=== PATIENT | female | born 1965 | race Caucasian/White ===

== ENCOUNTER 2017-02-20 12:00 | Inpatient (IN) | payer OTHER ==
[~2017-02-20] VITALS: Ht 180.3 cm; Wt 64.0 kg
--- NOTE | ~2017-02-20 | DS ---
Unit #: [id number] #: [id number] Patient: BROOKLYN BLAIR [id number] [facility] [address] [place] [address] [id number] I MR#: [id number] NAME: BROOKLYN BLAIR ROOM: [facility] Age: 51 Sex: F Admission Date: 02/20/2017 : 1965 Discharge Date: 02/24/2017 Attending Physician: Pollo Rodriguez M.D. Primary Care Physician: Generic Doctor Not In System DISCHARGE SUMMARY REASON FOR ADMISSION Depression. DIAGNOSTIC STUDIES LABORATORY RESULTS: Remarkable for urine drug screen positive for marijuana and opioid. HOSPITAL COURSE The patient was admitted to inpatient unit on 02/20/2017 and discharged on 02/24/2017. The patient was treated on the inpatient unit with chemical dependency group, expressive therapy, medication management, psychotherapy, psychoeducation. The patient participated in program, showed improvement. The patient was subsequently discharged with a plan to follow up in outpatient program. DISCHARGE MEDICATIONS Paxil 20 mg daily for mood symptom, Desyrel 150 mg at bedtime for sleep, Vistaril 50 mg t.i.d. for anxiety, and Neurontin 300 mg t.i.d. for anxiety. DISCHARGE DIAGNOSES Psychiatric: Major depressive disorder, recurrent, severe, F33.2; anxiety disorder, not otherwise specified, F40.01; cannabis abuse, moderate, F12.20; opioid use disorder, moderate, F11.20. Secondary diagnosis: Deferred. Medical diagnosis: Hypertension. Stressors: Psychosocial stressor. DISCHARGE INSTRUCTIONS The patient to follow up in outpatient clinic as per rn social services. CONDITION ON DISCHARGE The patient was pleasant and cooperative. Denied any psychotic symptom or any suicidal ideation. PROGNOSIS Guarded. DIET AND ACTIVITY As tolerated. Unit #: [id number] #: [id number] Patient: BROOKLYN BLAIR Dictated by... Pollo Rodriguez M.D. SZC/birdiel TD: 02/24/2017 18:44 JOB #: [id number] DISCHARGE SUMMARY Page 1 of 1 X Pollo Rodriguez MD X DISCHARGE SUMMARY
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
--- NOTE | ~2017-02-20 | HP ---
Unit #: [id number] #: [id number] Patient: MARGIE BLAIR [id number] [place] [address] [id number] MR#: [id number] NAME: MARGIE BLAIR ROOM: P258 Age: 51 Sex: F Admission Date: 02/20/2017 : 1965 Attending Physician: Pollo Rodriguez M.D. Admitting Physician: Pollo Rodriguez M.D. Primary Care Physician: Generic Doctor Not In System HISTORY AND PHYSICAL HISTORY OF PRESENT ILLNESS Margie is a 51-year-old female admitted on 02/20/[address] [place] [address] for depression and anxiety with suicidal ideation. PAST MEDICAL HISTORY 1. Hypertension. 2. Peripheral nerve pain. PAST SURGICAL HISTORY 1. Hysterectomy. 2. 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 ALLERGIES No known drug allergies. SOCIAL HISTORY Smokes less than half pack of cigarettes daily. No alcohol or illegal drug use. She is currently and living with her . FAMILY HISTORY Noncontributory. REVIEW OF SYSTEMS CONSTITUTIONAL: No fever or chills. HEENT: Denies any sore throat, ear pain or runny nose. CARDIOVASCULAR: Denies chest pain, irregular heart rhythm or palpitations. CHEST: Denies shortness of breath or cough. No hemoptysis. GASTROINTESTINAL: Denies nausea, vomiting, diarrhea or chronic constipation. ENDOCRINE: Denies history of increased thirst or urination. No recent significant weight loss or gain. GENITOURINARY: Denies dysuria, frequency, or hematuria. SKIN: Denies any rashes. HEMATOLOGIC: Denies history of increased bleeding or bruising. MUSCULOSKELETAL: Denies any hot, swollen joints. No generalized muscle pain. NEUROLOGIC: Denies problems with vision or speech. No frequent, severe headaches. No numbness, tingling or weakness in any extremities. Denies loss of bladder or bowel control. CURRENT MEDICATIONS 1. Paxil. 2. Coreg. Unit #: [id number] #: [id number] Patient: MARGIE BLAIR 3. Klonopin. 4. Ambien. 5. BuSpar. 6. Trileptal. PHYSICAL EXAMINATION GENERAL: Alert, oriented, in no acute distress. VITAL SIGNS: Blood pressure 131/92, heart rate 85, temperature 98.1. HEIGHT: 5 feet 11. WEIGHT: 141 pounds. SKIN: Warm and dry without rash or lesion. HEENT: Normocephalic. TMs not viewed. Oral and nasal passages clear. Conjunctivae clear. PERRLA. EOMs intact. NECK: Supple without lymphadenopathy or thyromegaly. HEART: Regular rate and rhythm without murmur. LUNGS: Clear. ABDOMEN: Soft, nontender, without masses or hepatosplenomegaly. : Not done. EXTREMITIES: No evidence of cyanosis, clubbing or edema. Moves all without focal deficit. NEUROLOGICAL: Grossly within normal limits. Cranial Nerves: II: Visual felix are intact. III, IV AND : Extraocular movements are intact. Pupils are equal, round and reactive to light. V: Facial sensation is grossly normal. VII: Facial movements and expression are normal. VIII: Auditory acuity grossly intact. IX, X: Uvula is midline. Phonation is normal. XI: Patient shrugs shoulders and turns head normally. XII: Tongue protrudes in the midline. Sensory and Motor Function: Sensory and motor sensation is grossly normal. Motor: moves all extremities well. Coordination: Gait is normal. Deep Tendon Reflexes: Intact. IMPRESSION 1. Psychiatric admission. 2. Hypertension. 3. Peripheral nerve pain. RECOMMENDATIONS PSYCHIATRIC: Per psychiatrist. MEDICAL: No contraindication to participate in facility's activities. MEDICAL PROGNOSIS Good. MEDICAL CONDITION Stable. Dictated by... Shady Salinas/landon TD: 02/20/2017 22:00 Unit #: [id number] #: [id number] Patient: MARGIE BLAIR JOB #: [id number] HISTORY AND PHYSICAL Page 1 of 1 X SARAY ZIMMERMAN APRN HISTORY AND PHYSICAL
--- NOTE | ~2017-02-20 | PN ---
Unit #: [id number] #: [id number] Patient: MARGIE FAJARDO [id number] [facility] [address] [place] [address] [id number] I MR#: [id number] NAME: MARGIE FAJARDO ROOM: P258 Age: 51 Sex: F Admission Date: 02/20/2017 : 1965 Attending Physician: Pollo Rodriguez M.D. Admitting Physician: Pollo Rodriguez M.D. Primary Care Physician: Generic Doctor Not In System [facility] PROGRESS NOTES DATE 02/21/2017 DISCUSSION Margie Fajardo is a 51-year-old female seen on 02/21/2017. Patient interviewed. Chart reviewed. Obtained information from nursing staff. Patient continues to report having trouble sleeping, anxiety, restless, anxious, nervous, suicidal ideation. Complete review of system unremarkable. MENTAL STATUS EXAMINATION General appearance, patient dressed casually. Attention span, concentration poor. Oriented in place and person. Mood and affect labile. Speech rapid. Thought process circumstantial. Patient denied any thoughts of harming self or others but somewhat guarded. Recent and remote memory poor. Insight and judgement poor. DIAGNOSES 1. Major depressive disorder, recurrent, severe. 2. Anxiety disorder NOS. ASSESSMENT/PLAN Advised to increase trazodone to 150 mg at bedtime, Klonopin 1 mg t.i.d., Paxil 20 mg daily. If needed, consider further adjustment of medication. Continue with the inpatient programming at this time. Dictated by... Ramona Downs/landon TD: 02/22/2017 22:29 JOB #: [id number] Unit #: [id number] #: [id number] Patient: MARGIE FAJARDO PROGRESS NOTES Page 1 of 1 X Pollo Rodriguez MD PROGRESS NOTE
--- NOTE | ~2017-02-20 | PN ---
Unit #: [id number] #: [id number] Patient: BROOKLYN BLAIR [id number] [facility] [address] [place] [address] [id number] MR#: [id number] NAME: BROOKLYN BLAIR ROOM: P258 Age: 51 Sex: F Admission Date: 02/20/2017 : 1965 Attending Physician: Pollo Rodriguez M.D. Admitting Physician: Pollo Rodriguez M.D. Primary Care Physician: Generic Doctor Not In System [facility] PROGRESS NOTES DATE 02/23/2017 DISCUSSION Ms. Hanson is a 51-year-old female, seen on 02/23/2017. The patient interviewed, chart reviewed, and obtained information from the nursing staff. The patient was reporting having problem with the anxiety, became mad, angry, upset, and explained that we will not start Klonopin. The patient tested positive for marijuana and opiates. REVIEW OF SYSTEMS Complete review of systems unremarkable. MENTAL STATUS EXAMINATION General appearance: Patient dressed casually. Attention span and concentration, fair. Oriented in place and person. Mood and affect, labile. Speech, rapid. Thought process, circumstantial. The patient denied any thoughts of harming self or others but guarded. Recent and remote memory, poor. Insight and judgment, poor. DIAGNOSES 1. Mood disorder, NOS. 2. Cannabis abuse, moderate. 3. Opiate use disorder, moderate. ASSESSMENT/PLAN Advised to continue with the current combination of medication, with the trazodone, Neurontin, Vistaril, if needed consider further adjustment of medication. The patient is also on Paxil and opiate protocol. Dictated by... Ramona Downs/edward TD: 02/25/2017 06:49 JOB #: [id number] Unit #: [id number] #: [id number] Patient: BROOKLYN BLAIR [facility] PROGRESS NOTES Page 1 of 1 X Pollo Rodriguez MD PROGRESS NOTE
--- NOTE | ~2017-02-20 | PN ---
Unit #: [id number] #: [id number] Patient: MARGIE FAJARDO [id number] [facility] [address] [place] [address] [id number] MR#: [id number] NAME: MARGIE FAJARDO ROOM: P258 Age: 51 Sex: F Admission Date: 02/20/2017 : 1965 Attending Physician: Pollo Rodriguez M.D. Admitting Physician: Pollo Rodriguez M.D. Primary Care Physician: Generic Doctor Not In System [facility] PROGRESS NOTES DATE 02/22/2017 DISCUSSION Ms. Margie Fajardo is a 51-year-old female, seen on 02/22/2017. The patient interviewed, chart reviewed, and obtained information from the nursing staff. The patient was explained why her Klonopin was discontinued and medication change. The patient seems to be better, compliant and cooperative still somewhat sad and dysphoric but decrease in anxiety, tolerating medication fairly well, isolative, guarded, flat affect. REVIEW OF SYSTEMS Complete review of systems unremarkable. MENTAL STATUS EXAMINATION General appearance: Patient dressed casually. Attention span and concentration, fair. Oriented in time, place, and person. Mood and affect, sad and dysphoric. Speech, monotone. Thought process, concrete. The patient denied any thoughts of harming self or others but guarded, withdrawn, isolative. Recent and remote memory, poor. Insight and judgment, poor. DIAGNOSES 1. Mood disorder, NOS. 2. Anxiety disorder, NOS. 3. Opiate use disorder, severe. 4. Cannabis abuse disorder, [id number]. ASSESSMENT/PLAN Advised to continue with the current combination of medication. Klonopin was discontinued yesterday and the patient was started on COWS detox protocol, if needed consider further adjustment of medication. Dictated by... Pollo Rodriguez M.D. JUAN/edward Unit #: [id number] #: [id number] Patient: MARGIE FAJARDO TD: 02/24/2017 08:18 JOB #: [id number] [facility] PROGRESS NOTES Page 1 of 1 X Chhibber,Pollo Z MD X PROGRESS NOTE
--- NOTE | ~2017-02-20 | CO ---
Unit #: [id number] #: [id number] Patient: MARGIE BLAIR [id number] [place] [address] [id number] I MR#: [id number] NAME: MARGIE BLAIR ROOM: P258 Age: 51 Sex: F Admission Date: 02/20/2017 : 1965 Attending Physician: Pollo Rodriguez M.D. CONSULTATION REPORT HISTORY OF PRESENT ILLNESS Margie has had some elevated blood pressures this morning. Her blood pressure was 146/105. She reports that previously she was on clonidine that her insurance stopped and she had to stop taking her clonidine. She is not taking any other medications. PHYSICAL EXAMINATION CARDIAC: Regular rate and rhythm. No murmurs, gallops, or rubs. RESPIRATORY: Clear to auscultation bilaterally. ASSESSMENT AND PLAN Hypertension. We will continue with clonidine 0.1 mg q.12 hours p.r.n. blood pressures greater than 140/90. She does have this ordered as part of the protocol. Please notify if blood pressures continued to be greater than 140/90, we will consider adding another medication like Norvasc or hydrochlorothiazide depending on labs. Dictated by... Saige Higginbotham A.P.R.N. for Ramona Brcieno/gonzalo TD: 02/23/2017 23:24 JOB #: [id number] CONSULTATION REPORT Page 1 of 1 X SAIGE ZIMMERMAN APRN X CONSULTATION REPORT
[2017-02-21 09:42] LABS: BASOPHIL% 0.2 % (0-2.5); EOSINOPHIL% 0.2 % (0.0-7.0); HEMATOCRIT 41.6 % (35.0-45.0); LYMPHOCYTE# 2.1 X10e3 (1.0-3.5); LYMPHOCYTE% 19.4 % (17.0-45.0); MEAN CELL VOLUME 89.3 FL (83-96); MEAN CORPUSCULAR HEMOGLOBIN 30.1 PG (28-34); MEAN CORPUSCULAR HGB CONC 33.7 g/dL (30-36); MEAN PLATELET VOLUME 8.3 FL (6.5-11.5); MONOCYTE# 0.5 X10e3 (0-1.0); MONOCYTE% 4.3 % (3.0-12.0); NEUTROPHIL# 8.2 X10e3 (1.5-7.1); NEUTROPHIL% 75.9 % (40-75); PLATELET COUNT 289 X10e3 (140-420); RED BLOOD COUNT 4.66 X10e (3.90-5.30); WHITE BLOOD COUNT 10.8 X10e3 (4.0-10.5)
[2017-02-21 09:53] LABS: ALBUMIN SERUM 4.1 g/dL (3.5-5.0); BILIRUBIN,TOTAL 0.7 mg/dL (0.2-2.0); BUN/CREATININE RATIO 17.14; CALCIUM SERUM 9.4 mg/dL (8.4-10.2); CREATININE SERUM 0.7 mg/dL (0.6-1.4); POTASSIUM 3.9 mmol/L (3.5-5.1); PROTEIN TOTAL SERUM 7.3 g/dL (6.0-8.3)
[2017-02-21 09:56] LABS: URINE APPEARANCE SL HAZY; URINE BILIRUBIN NEG (NEG); URINE BLOOD 2+ (NEG); URINE COLOR YELLOW; URINE GLUCOSE NORM (NORM); URINE KETONE 1+ (NEG); URINE LEUKOCYTE ESTERASE NEG (NEG); URINE NITRATE NEG (NEG); URINE PROTEIN NEG (NEG); URINE UROBILINOGEN NORM (NORM)
[2017-02-21 09:56] LABS: DIFF IND NO
[2017-02-21 10:19] LABS: AMPHETAMINE NEG (NEG); BARBITURATES NEG (NEG); BENZODIAZEPINES NEG (NEG); COCAINE NEG (NEG); MARIJUANA POS (NEG); OPIATES POS (NEG); TRICYCLIC ANTIDEPRESSANTS NEG (NEG); U METHADONE NEG (NEG)
[2017-02-21 10:20] LABS: URINE BACTERIA AUWI NEG (NEGATIVE); URINE SQUAMOUS EPITHELIAL CELL FEW /[HPF]; UWBCS1 AUWI 0-2 (0-5)
== END 2017-02-24 12:15 | disposition home or self-care (01) | DRG 885 ==
LOC: P2L 14:03 → P1S 14:03 → P2L 14:40
PROVIDERS: Psychiatry & Neurology Psychiatry
PROC: HZ2ZZZZ Detoxification Services for Substance Abuse Treatment (ICD-10-PCS; principal; 2017-02-20)
DX: F33.2 Major depressive disorder, recurrent severe without psychotic features (principal); R45.851 Suicidal ideations; F11.20 Opioid dependence, uncomplicated; F41.9 Anxiety disorder, unspecified; I10 Essential (primary) hypertension; F17.210 Nicotine dependence, cigarettes, uncomplicated; Z90.710 Acquired absence of both cervix and uterus; G58.8 Other specified mononeuropathies; F12.20 Cannabis dependence, uncomplicated; F39 Unspecified mood [affective] disorder
CPT/HCPCS: 80053; 80307; 81003; 85025; 86592